=== PATIENT | female | born 1985 | race Caucasian/White ===

== ENCOUNTER → 2021-08-06 22:53 | Observation (INO) ==
[2021-08-06 22:29] LABS: Bilirubin,Urine Negative (Negative); Blood,Urine Negative (Negative); Clarity,Urine Clear (Clear); Color,Urine Yellow (Yellow); Glucose,Urine (UA) Normal (Normal); Ketones,Urine Trace mg/dL (Negative); Leukocyte Esterase,Urine Negative (Negative); Nitrite,Urine Negative (Negative); Protein,Urine Negative (Neg-Trace); Urobilinogen,Urine Normal (Normal)
[~2021-08-06 22:53] MED LIST: Acetaminophen 325 MG TABLET PO ONE
== END | disposition home or self-care (01) ==
LOC: 1NENULAB
PROVIDERS: ADMIT Advanced Practice Midwife; ATTEND Advanced Practice Midwife

== ENCOUNTER 2021-12-27 07:06 | Inpatient (IN) ==
[2021-12-27] MEDS ORDERED: Naloxone 0.4 MG/ML INJ IVP PRN ×2 (07:31→08:59)
[2021-12-27] MEDS ORDERED: Famotidine 20 MG/2 ML VIAL IVP PRN (07:31)
[2021-12-27] MEDS ORDERED: Metoclopramide 10 MG/2 ML VIAL IVP PRN ×2 (07:31→15:22)
[2021-12-27] MEDS ORDERED: Ringers Solution, Lactated 1,000 ML IVC SCH (07:45)
[2021-12-27 08:27] LABS: Basophils % 0.3 %; Eosinophils % 0.2 %; Hematocrit 36.3 % (35.3-44.9); Hemoglobin 11.7 g/dL (11.5-15.4); Immature Granulocytes % 0.5 % (0-4); Immature Platelets 12.1 % (1.1-6.1); Lymphocytes # 1.2 K/mcL (0.6-4.6); Lymphocytes % 13.2 %; Mean Corpuscular HGB Conc 32.2 g/dL (31.6-35.5); Mean Corpuscular Hemoglobin 27.5 pg (28.0-33.3); Mean Corpuscular Volume 85.2 fL (83.0-100.0); Monocytes # 0.6 K/mcL (0.0-1.3); Monocytes % 6.9 %; Platelet Count 187 K/mcL (140-400); Red Blood Count 4.26 M/mcL (3.82-4.97); Red Cell Distribution Width 15.1 % (11.5-14.5); Segmented Neutrophils % 78.9 %; White Blood Count 8.9 K/mcL (4.3-11.1)
[2021-12-27] MEDS ORDERED: Ringers Solution, Lactated 1,000 ML IVC ONE (08:32)
[2021-12-27 08:35] LABS: Influenza A PCR Negative (Negative); Influenza B PCR Negative (Negative); Resp. Syncytial Virus PCR Negative (Negative)
[2021-12-27 08:42] LABS: SARS-CoV-2 by PCR (In House) Negative (Negative)
[2021-12-27] MEDS ORDERED: Promethazine 6.25 MG in Water for inj. (sterile) 20 ML IVPB PRN (08:59)
[2021-12-27] MEDS ORDERED: *HR* HYDROmorphone PF 0.5 MG/0.5 ML SYRINGE IVP PRN (08:59)
[2021-12-27] MEDS ORDERED: *HR* FentaNYL (PF) 100 MCG/2 ML VIAL ONE (09:03)
[2021-12-27] MEDS ORDERED: *HR* Morphine Sulfate/PF 10 MG/10 ML AMPUL ONE (09:03)
[2021-12-27] MEDS ORDERED: Ondansetron 4 MG/2 ML VIAL ONE (09:03)
[2021-12-27] MEDS ORDERED: *HR* Phenylephrine 10 MG/ML VIAL ONE (09:03)
[2021-12-27] MEDS ORDERED: *HR* Midazolam HCl 2 MG/2 ML VIAL ONE ×3 (09:03→11:49)
[2021-12-27] MEDS ORDERED: Oxytocin 30 UNIT/503 ML BAG IVC ONE (09:28)
[2021-12-27 09:42] LABS: Amphetamine Screen,Urine Negative ng/mL (Cutoff=1000); Barbiturate Screen,Urine Negative ng/mL (Cutoff=200); Benzodiazepines Screen,Urine Negative ng/mL (Cutoff=200); Cannabinoid Screen,Urine Negative ng/mL (Cutoff = 50); Cocaine Screen,Urine Negative ng/mL (Cutoff= 300); Opiate Screen,Urine Negative ng/mL (Cutoff=300); Phencyclidine Screen,Urine Negative ng/mL (Cutoff=25)
[2021-12-27] MEDS ORDERED: CeFAZolin Syr 3,000MG/30 ML 3,000 MG/30 ML SYRINGE IVPB ONE (10:00)
[2021-12-27 10:10] LABS: Alanine Aminotransferase 59 Units/L (7-52); Aspartate Amino Transferase 37 Units/L (13-39); BUN/Creatinine Ratio 10 (6-26); Blood Urea Nitrogen 7 mg/dL (6-20); Lactate Dehydrogenase 174 Units/L (140-271); Uric Acid 5.2 mg/dL (2.3-7.6); eGFR For African Americans > 60 (> 60); eGFR For Non-African Americans > 60 (> 60)
[2021-12-27] MEDS ORDERED: Ringers Solution, Lactated 1,000 ML ONE (10:55)
[2021-12-27] MEDS ORDERED: Acetaminophen IV 1,000 MG/100 ML BAG IVPB ONE (11:14)
[2021-12-27] MEDS ORDERED: Ketorolac 30 MG/ML VIAL ONE (12:11)
[2021-12-27 13:29] LABS: Protein/Creatinine Ratio,Urine 0.12 mg/mg (0.00-0.20)
[2021-12-27] MEDS ORDERED: Ondansetron 4 MG/2 ML VIAL IVP PRN (15:22)
[2021-12-27] MEDS ORDERED: *HR* OxyCODONE Immed Rel 5 MG TABLET PO PRN (15:22)
[2021-12-27] MEDS ORDERED: Oxytocin 30 UNIT/503 ML BAG IVC SCH (15:22)
[2021-12-27] MEDS ORDERED: Rho Immune Globulin 1,500 UNIT SYRINGE IM ONE (15:22)
[2021-12-27] MEDS: Simethicone 80 MG TAB.CHEW PO SCH ×2 (15:45→21:38)
[2021-12-27] MEDS: Acetaminophen 325 MG TABLET PO SCH ×2 (15:45→21:38)
[2021-12-27] MEDS: Ketorolac 30 MG/ML VIAL IVP SCH (18:40)
[2021-12-28] MEDS: Ketorolac 30 MG/ML VIAL IVP SCH (03:52)
[2021-12-28] MEDS: Acetaminophen 325 MG TABLET PO SCH ×3 (03:52→15:30)
[2021-12-28 05:04] LABS: Basophils % 0.5 %; Eosinophils # 0.1 K/mcL (0.0-0.6); Eosinophils % 1.5 %; Hematocrit 31.1 % (35.3-44.9); Immature Granulocytes % 0.4 % (0-4); Lymphocytes # 1.2 K/mcL (0.6-4.6); Lymphocytes % 15.1 %; Mean Corpuscular HGB Conc 32.2 g/dL (31.6-35.5); Mean Corpuscular Hemoglobin 27.6 pg (28.0-33.3); Mean Corpuscular Volume 85.9 fL (83.0-100.0); Mean Platelet Volume 12.6 fL (9.4-12.4); Monocytes # 0.8 K/mcL (0.0-1.3); Monocytes % 9.4 %; Platelet Count 158 K/mcL (140-400); Red Blood Count 3.62 M/mcL (3.82-4.97); Segmented Neutrophils % 73.1 %; White Blood Count 8.2 K/mcL (4.3-11.1)
[2021-12-28] MEDS: Prenatal Vit/FA 1 EACH TABLET PO SCH (08:03)
[2021-12-28] MEDS: Simethicone 80 MG TAB.CHEW PO SCH ×3 (08:03→19:48)
[2021-12-28] MEDS: *HR* Enoxaparin 80 MG/0.8 ML SYRINGE SQ SCH (19:48)
[2021-12-28] MEDS: Ibuprofen 600 MG TABLET PO SCH (19:48)
[2021-12-29] MEDS: Acetaminophen 325 MG TABLET PO SCH ×2 (00:57→08:48)
[2021-12-29] MEDS: *HR* Enoxaparin 80 MG/0.8 ML SYRINGE SQ SCH (05:51)
[2021-12-29] MEDS: Ibuprofen 600 MG TABLET PO SCH (05:51)
[2021-12-29 07:08] VITALS: BP 115/73; PULSE 67; TEMP 97.9; O2SAT 96
[2021-12-29] MEDS: Prenatal Vit/FA 1 EACH TABLET PO SCH (08:48)
[2021-12-29] MEDS: Simethicone 80 MG TAB.CHEW PO SCH (08:48)
== END 2021-12-29 12:30 | disposition home or self-care (01) | DRG 539 ==
LOC: SAMDAY 07:06 → 1NENULAB 07:27 → 1NENUOBS 15:24
PROVIDERS: ADMIT Obstetrics & Gynecology; ATTEND Obstetrics & Gynecology